=== PATIENT | female | born 1990 | race Asian ===

== ENCOUNTER → 2020-01-24 | Outpatient (CLI) | payer OTHER | LOC: MC.RAD 10:54 | DX: N63.20 Unspecified lump in the left breast, unspecified quadrant (principal) ==

== ENCOUNTER 2021-03-05 11:41 | Inpatient (IN) | payer OTHER ==
[~2021-03-05] VITALS: Ht 170.2 cm; Wt 76.4 kg
[2021-03-08] VITALS (40 sets, daily range): BP systolic 93–163; BP diastolic 45–86; PULSE 53–109; TEMP 97.4–99.4
--- NOTE | 2021-03-08 06:30 | NUR ---
Patient 39.0 weeks here for scheduled induction, ambulates to LD6 with spouse. Changed into gown. FHR/TOCO monitors applied and explained. Patient denies LOF, VB, regular contractions and denies decreased movement. Assessments completed, consents signed, packet given. 0700: IV started, flushed. Labs obtained and sent to lab. 0715: Pitocin induction discussed with patient, patient agrees with plan. Pitocin started at 2 mu/hr per protocol.
[2021-03-08 07:41] LABS: BASO % 0.7 % (0.0-2.0); EOS # 0.1 K/mm3 (0.0-0.7); GRAN # 3.2 K/mm3 (1.4-6.5); GRAN % 54.1 % (42.2-75.2); HEMATOCRIT 33.3 % (37.0-47.0); HEMOGLOBIN 10.6 g/dl (12.5-16.0); LYMPH # 2.1 K/mm3 (1.2-3.4); LYMPH % 35.1 % (20.0-51.0); MEAN CELL VOLUME 83 fl (80.0-100.0); MEAN CORPUSCULAR HEMOGLOBIN 26 pg (27.0-31.0); MEAN CORPUSCULAR HGB CONC 32 g/dl (33.0-37.0); MEAN PLATELET VOLUME 11.5 fl (7.4-10.4); MONO # 0.5 K/mm3 (0.1-0.6); MONO % 7.8 % (1.7-9.3); PLATELET COUNT 289 K/mm3 (130-400); RED BLOOD COUNT 4.01 M/mm3 (4.10-5.30); REDCELL DISTRIBUTION WIDTH-CV 13.7 % (11.5-14.5)
--- NOTE | 2021-03-08 09:30 | NUR ---
0930: Difficulty tracing contractions due to maternal position. This RN at bedside adjusting TOCO. 0935: Roles at bedside assessing patient and FHR strip. SVE /-2. AROM done. Plan of care discussed. Patient repositioned.
--- NOTE | 2021-03-08 10:45 | NUR ---
1045: Patient requesting epidural. Endy CUT OUT WORKER, at nurse's station and notified. 1055: Patient sitting up for epidural. Endy CUT OUT WORKER at bedside. Difficulty tracing FHR due to maternal position. 1105: Test dose given. Patient tolerates well. 1110: Patient repositioned, safety precaution and plan of care discussed.
--- NOTE | 2021-03-08 13:50 | NUR ---
1350: Patient states feeling more pressure. SVE /-1. Dr. Selby notified, no new orders.
--- NOTE | 2021-03-08 14:40 | NUR ---
1440: Recurrent variables/early decelerations noted. 1445: Patient feeling pain and pressure. SVE 10/+1. Dr. Selby notified.
--- NOTE | 2021-03-08 14:50 | NUR ---
1450: Removed breaux catheter. Patient tolerates well. Pushing instructions discussed with patient. 1456: Patient begins to push with contractions. Variable decelerations noted. 1509: Dr. Selyb notified for delivery. Patient continues to push with contractions. 1518: Dr. Selby at bedside. Patient prepped for vaginal delivery. 1520: Patient pushing with Dr. Selby. 1523: Spontaneous vaginal delivery of viable female infant. Head followed by body. Infant to patient's abdomen. BINU Aleman assumes care of . Cord clamped and cut by physician. Cord blood obtained. 1525: Spontaneous delivery of intact placenta. Pitocin bolus started at 333 mu/hr per protocol. Fundal massage done, firm, bleeding within normal limits. Dr. Selby repairs lacerations. Pericare done. Ice pack applied to perineum. Patient repositioned and plan of care discussed.
--- NOTE | 2021-03-08 19:31 | NUR ---
UP TO BATHROOM, UNABLE TO VOID AT THIS TIME. HAS MODERATE AMOUNT OF EMESIS WHILE ON TOILET. EBONI CARE PERFORMED AND PADS CHANGED. TOLERATES BEING UP WELL. THEN TRANSFERRED TO ROOM 208 PER WHEELCHAIR
[2021-03-09 05:00] VITALS: BP 103/64; PULSE 61; TEMP 97.4
[2021-03-09 07:00] VITALS: BP 110/62; PULSE 57; TEMP 98.1
[2021-03-09 12:30] VITALS: BP 104/50; PULSE 66; TEMP 97.9
[2021-03-09 21:00] VITALS: BP 101/51; PULSE 68; TEMP 98.8
[2021-03-10 07:15] VITALS: BP 104/63; PULSE 69; TEMP 98.2
[2021-03-10] MEDS ORDERED: IBU800 M1 PO (08:49)
--- NOTE | 2021-03-10 15:33 | NUR ---
DISCHARGE TEACHING COMPLETED. PATIENT EDUCATED ON FOLLOW UP APPOINTMENT AND PRESCRIPTIONS. QUESTIONS INVITED AND ANSWERED.
== END 2021-03-10 16:25 | disposition home or self-care (01) | DRG 807 ==
LOC: OB 03-08 06:14 → LDR 03-08 06:14 → OB 03-08 19:20
PROVIDERS: ADMIT Obstetrics & Gynecology
PROC: 10E0XZZ Delivery of Products of Conception, External Approach (ICD-10-PCS; principal; 2021-03-08)
PROC: 0KQM0ZZ Repair Perineum Muscle, Open Approach (ICD-10-PCS; 2021-03-08)
PROC: 10907ZC Drainage of Amniotic Fluid, Therapeutic from Products of Conception, Via Natural or Artificial Opening (ICD-10-PCS; 2021-03-08)
PROC: 3E033VJ Introduction of Other Hormone into Peripheral Vein, Percutaneous Approach (ICD-10-PCS; 2021-03-08)
DX: O69.81X0 Labor and delivery complicated by cord around neck, without compression, not applicable or unspecified (principal); Z37.0 Single live birth; O70.1 Second degree perineal laceration during delivery; Z3A.39 39 weeks gestation of pregnancy; Z23 Encounter for immunization
CPT/HCPCS: J2405; J2590; J7120